=== PATIENT | male | born 1960 | race Caucasian/White ===

== ENCOUNTER → 2016-03-14 | Outpatient (CLI) | payer SELFPAY ==
[2010-03-14 10:19] VITALS: BP 109/69
== END ==
LOC: MOB LAB 09:19
PROVIDERS: ATTEND Physician Assistant Medical
DX: M10.9 Gout, unspecified (principal)
CPT/HCPCS: 36415; 84550

== ENCOUNTER → 2016-05-18 | Outpatient (CLI) | payer OTHER ==
[2010-03-14 10:19] VITALS: BP 109/69
== END ==
LOC: MOB LAB 11:23
PROVIDERS: ATTEND Physician Assistant Medical
DX: M10.9 Gout, unspecified (principal)
CPT/HCPCS: 36415; 84550